=== PATIENT | male | born 1965 | race African-American/Black ===

== ENCOUNTER 2017-12-21 21:06 | Emergency (ER) | payer MEDICARE ==
[~2017-12-21] VITALS: Ht 182.9 cm; Wt 77.3 kg
[~2017-12-21 21:06] MED LIST: ANDROGEL1% TP; ANDROGEL1.62% TP; ASPIRIN E.C. 8181 MG PO; CHANTIX 1MG1 MG PO; COREG 3.123.125 MG/T PO; CYPROHEPTADINE4 MG PO; DEXILANT30 MG PO; FLONASE NASAL S16 GM NS; INTELENCE100 MG PO; ISENTRESS400 MG PO; NORVASC 5MG5 MG/TAB PO; NORVIR100 M1 PO; PREZISTA600 MG PO; PROAIR HFA0.09 MG/AC IH; TRICOR145 MG PO; VALIUM 5MG T5 MG/TAB PO; VITAMIN D2000 I1 PO; ZANTAC 150MG T150 MG PO; ZETIA 10MG TAB10 MG PO; ZOVIRAX400 MG PO
[2017-12-21 21:16] VITALS: TEMP 98
[2017-12-21] MEDS ORDERED: PREZCOBIX1 TAB PO (22:57)
[2017-12-21] MEDS ORDERED: BIKTARVY (22:58)
[2017-12-21 23:33] LABS: BASO % 0.6 % (0.0-2.0); EOS # 0.2 (0.0-0.7); EOS % 2.6 % (0-4.0); GRAN # 2.2 (1.4-6.5); GRAN % 33.7 % (42.2-75.2); HEMATOCRIT 37.8 % (42.0-52.0); HEMOGLOBIN 13.7 g/dl (13.5-18.0); LYMPH # 3.6 (1.2-3.4); LYMPH % 54.9 % (20.0-51.0); MEAN CELL VOLUME 97 fl (80.0-100.0); MEAN CORPUSCULAR HEMOGLOBIN 35 pg (27.0-31.0); MEAN CORPUSCULAR HGB CONC 36 g/dl (33.0-37.0); MEAN PLATELET VOLUME 9.9 fl (7.4-10.4); MONO # 0.5 (0.1-0.6); PLATELET COUNT 213 K/mm3 (130-400); RED BLOOD COUNT 3.88 M/mm3 (4.20-5.60); REDCELL DISTRIBUTION WIDTH-CV 11.9 % (11.5-14.5)
[2017-12-21 23:54] LABS: ALANINE AMINOTRANSFERASE 38 U/L (21-72); ALKALINE PHOSPHATASE 80 U/L (50-136); ANION GAP 12 mmol/L (7-16); AST,SGOT 26 U/L (15-37); BILIRUBIN,TOTAL 0.6 mg/dL (0.0-1.0); BLOOD UREA NITROGEN 14 mg/dL (9-20); CALCIUM 9.3 mg/dL (8.4-10.2); CARBON DIOXIDE 26 mmol/L (22-30); CHLORIDE 102 mmol/L (98-107); CREATININE, serum 1.11 mg/dL (0.66-1.25); GLUCOSE 98 mg/dL (74-106); POTASSIUM 3.8 mmol/L (3.4-5.0); SODIUM 141 mmol/L (137-145); TOTAL PROTEIN 7.5 gm/dL (6.4-8.2)
[2017-12-22 00:06] LABS: TROPONIN-I < 0.012 ng/mL (0.000-0.034)
[2017-12-22 01:07] VITALS: BP 121/81; PULSE 76
== END 2017-12-22 01:13 | disposition home or self-care (01) ==
LOC: COL.ER 21:06
PROVIDERS: Emergency Medicine
DX: R07.89 Other chest pain (principal); I10 Essential (primary) hypertension; E78.5 Hyperlipidemia, unspecified; J45.909 Unspecified asthma, uncomplicated; I25.2 Old myocardial infarction; F17.210 Nicotine dependence, cigarettes, uncomplicated; Z79.82 Long term (current) use of aspirin; Z21 Asymptomatic human immunodeficiency virus [HIV] infection status